=== PATIENT | male | born 1940 | race Caucasian/White ===

== ENCOUNTER 2021-06-20 07:05 | Emergency (ER) | payer MEDICARE, BC ==
[2021-06-20] MEDS ORDERED: fentaNYL 100 MCG/2 ML SDV IVPUSH ONE (07:35)
--- NOTE | 2021-06-20 07:44 | EDM.PDOC ---
<Juan Salazar - Last Filed: 06/20/21 07:36> ED HPI GENERAL MEDICAL PROBLEM - General Chief Complaint: General Stated Complaint: FELL WHILE WALKING THE THE DOG Time Seen by Provider: 06/20/21 07:30 Source of Information: Reports: Patient, EMS History Limitations: Reports: No Limitations - History of Present Illness INITIAL COMMENTS - FREE TEXT/NARRATIVE: 80-year-old male at about 4 AM tripped over a dog striking his right lateral chest on the edge of a chair. He has had intense pain since that time, with spasms, pain with breathing and unable to move. He is not short of breath despite the pleuritic pain when breathing. Denies abdominal pain or extremity pain. Pain is fairly localized to the right lateral chest. Fentanyl was given for EMS in route which did help initially but it is wearing off. Onset: Sudden Duration: Hour(s): (3 hours ago) Location: Reports: Chest (Right lateral chest) Worsens with: Reports: Breathing, Movement Associated Symptoms: Reports: Chest Pain (Right lateral chest wall pain), Other (Significant pleuritic pain). Denies: Cough, Nausea/Vomiting, Shortness of Breath Other Treatments PILER: Fenntanyl and zofran Right Chest Pain Score (Numeric/FACES): 3 - Related Data Allergies Allergy/AdvReac Type Severity Reaction Status Date / Time xray dye Allergy Seizure Uncoded 06/20/21 07:17 Home Meds: Home Meds Cetirizine [ZyrTEC] 10 mg PO DAILY 03/06/14 [History] Multivitamin [Multi-Vitamin Daily] 1 each PO DAILY 03/06/14 [History] RABEprazole [Aciphex] 20 mg PO DAILY 03/06/14 [History] Naphazoline [AK-Con 0.1% Ophth Soln] 1 drop EYEBOTH DAILY 05/11/19 [History] Lidocaine 5% [Lidoderm 5%] 1 patch TOP DAILY #10 patch 06/20/21 [Rx] atorvaSTATin [Lipitor] 10 mg PO BEDTIME 06/20/21 [History] lisinopriL [Lisinopril] 20 mg PO BEDTIME 06/20/21 [History] Past Medical History HEENT History: Reports: Impaired Vision Cardiovascular History: Reports: High Cholesterol, Hypertension, Pacemaker Respiratory History: Reports: Asthma Gastrointestinal History: Reports: GERD Genitourinary History: Reports: BPH Musculoskeletal History: Reports: Fracture Neurological History: Reports: None Psychiatric History: Reports: None Endocrine/Metabolic History: Reports: None Hematologic History: Reports: None Immunologic History: Reports: None Oncologic (Cancer) History: Reports: Basal Cell Carcinoma Dermatologic History: Reports: None - Infectious Disease History Infectious Disease History: Reports: Chicken Pox, Influenza, Mumps, Pertussis (Whooping Cough) - Past Surgical History HEENT Surgical History: Reports: None Cardiovascular Surgical History: Reports: Pacer GI Surgical History: Reports: Colonoscopy Male Surgical History: Reports: Prostatectomy, TURBT-Transurethral Resection of Bladder Tumor Musculoskeletal Surgical History: Reports: Arthroscopic Knee Social & Family History - Caffeine Use Caffeine Use: Reports: Coffee, Tea - Recreational Drug Use Recreational Drug Use: No ED ROS GENERAL - Review of Systems Review Of Systems: See Below Constitutional: Denies: Fever, Chills HEENT: Reports: No Symptoms Respiratory: Reports: Pleuritic Chest Pain. Denies: Shortness of Breath Cardiovascular: Denies: Palpitations GI/Abdominal: Reports: Nausea (The initial fentanyl given by EMS did cause some nausea). Denies: Abdominal Pain, Vomiting : Reports: No Symptoms Skin: Denies: Bruising Neurological: Denies: Headache ED EXAM, GENERAL - Physical Exam Exam: See Below Exam Limited By: No Limitations General Appearance: Alert, Mild Distress (Fairly uncomfortable) Eye Exam: Bilateral Eye: Normal Inspection Head: Atraumatic Neck: Supple, Non-Tender Respiratory/Chest: Lungs Clear, Other (Extremely tender to palpation on the right lateral chest wall, causes increased spasm and pain) Cardiovascular: Regular Rate, Rhythm, Bradycardia GI/Abdominal: Soft, Tender (Some increased tenderness and pain with palpation of the extreme right upper quadrant but no rebound tenderness) Extremities: Normal Inspection. No: Pedal Edema, Limited Range of Motion Neurological: Alert, Oriented Psychiatric: Anxious Skin Exam: Warm, Dry, Other (I see no bruising over the injured area.) Course - Re-Assessments/Exams Free Text/Narrative Re-Assessment/Exam: 06/20/21 07:44 Patient remained stable but uncomfortable. 50 mcg of fentanyl was given IV and a CT of the chest ordered without contrast. He is allergic to contrast dye. 06/20/21 07:44 Dr. Agnostopoulus took over care at 7:45 AM. Departure - Departure Disposition: Home, Self-Care 01 Clinical Impression: Rib fracture Qualifiers: Encounter type: initial encounter Rib fracture type: single rib Fracture type: closed Laterality: right Qualified Code(s): S22.31XA - Fracture of one rib, right side, initial encounter for closed fracture - Discharge Information Instructions: Rib Fracture Referrals: PCP,None [Primary Care Provider] - Forms: ED Department Discharge Care Plan Goals: I have prescribed Lidoderm 5% patches for you, however, most insurances will not pay for this so as a replacement if they do not cover it I would recommend picking up Salonpas 4% lidocaine patch which she would apply and replaced daily. <Chucho Wagner - Last Filed: 06/20/21 09:25> Course - Vital Signs Last Recorded V/S: Last Vital Signs Temp 36.6 C 06/20/21 07:16 Pulse 64 06/20/21 08:37 Resp 18 06/20/21 07:16 BP 114/45 L 06/20/21 08:37 Pulse Ox 94 L 06/20/21 08:37 - Orders/Labs/Meds Meds: Medications Discontinued Medications Generic Name Dose Route Start Last Admin Trade Name Freq PRN Reason Stop Dose Admin Fentanyl 50 mcg 06/20/21 07:35 06/20/21 07:42 Fentanyl 100 Mcg/2 Ml Sdv IVPUSH 06/20/21 07:36 50 mcg ONETIME ONE Administration Lidocaine 700 mg 06/20/21 08:46 06/20/21 08:52 Lidocaine 5% 700 Mg Patch TRDERM 06/20/21 08:47 700 mg ONETIME ONE Administration - Radiology Interpretation Free Text/Narrative:: The images of the CT of the chest without contrast as well as the report. The report is as follows: Findings: Heart size upper limits of normal. Normal caliber thoracic aorta and central pulmonary arteries. Left chest pacemaker with leads in the right atrium and right ventricle. No pericardial effusion. No thoracic lymphadenopathy. Bibasilar atelectasis. No focal consolidation, pleural effusion, or pneumothorax. No pulmonary nodules identified. No central endobronchial lesion or bronchial wall thickening. The imaged thyroid gland is normal in appearance. Elevation of the right hemidiaphragm. Partially visualized right renal cyst. The visualized upper abdomen is otherwise unremarkable. Mild degenerative changes of the spine. Acute nondisplaced fracture of the right posterolateral 9th rib. Impression: 1. Acute nondisplaced fracture of the right posterolateral 9th rib. 2. No other acute findings in the chest. Please note that all CT scans at this facility use dose modulation, iterative reconstruction, and/or weight-based dosing when appropriate to reduce radiation dose to as low as reasonably achievable. Dictated by Kaylie Recinos MD @ 06/20/2021 8:47:25 AM - Re-Assessments/Exams Free Text/Narrative Re-Assessment/Exam: 06/20/21 09:[address] of the chest without contrast (both the images and the report). The patient has a nondisplaced rib fracture of the ninth rib on the right posterior lateral chest. We will treat this with transdermal lidocaine (Salonpas) 4% patch applied to the area daily. I did explain to the patient that this will take 4 to 6 weeks to heal. He may experience pain for the next 1 to 2 weeks until the callus forms. In addition to the Lidoderm patch, he may also use Tylenol for pain relief. At this time, the patient is suitable for discharge. Indications return to the ED were discussed. Departure - Departure Time of Disposition: 09:21 Sepsis Event Note (ED) - Focused Exam Vital Signs: Vital Signs Temp Pulse Resp BP Pulse Ox 06/20/21 08:37 64 114/45 L 94 L 06/20/21 07:39 55 L 141/64 H 93 L 06/20/21 07:16 36.6 C 57 L 18 126/68 92 L 06/20/21 07:13 36.6 C 57 L 18 126/68 92 L - Problem List & Annotations (1) Rib fracture SNOMED Code(s): 39562821 Code(s): S22.39XA - FRACTURE OF ONE RIB, UNSP SIDE, INIT FOR CLOS FX Status: Acute Priority: Medium Current Visit: Yes Qualifiers: Encounter type: initial encounter Rib fracture type: single rib Fracture type: closed Laterality: right Qualified Code(s): S22.31XA - Fracture of one rib, right side, initial encounter for closed fracture - Problem List Review Problem List Initiated/Reviewed/Updated: Yes
[2021-06-20] MEDS ORDERED: Lidocaine 5% 700 MG Patch TRDERM ONE (08:46)
--- NOTE | 2021-06-20 08:49 | CRLCT ---
For Patients: As a result of the Century Cures Act, medical imaging exams and procedure reports are released immediately into your electronic medical record. You may view this report before your referring provider. If you have questions, please contact your health care provider. Indication: Fall, trauma to right side of the ribs, fell and hit a chair. Technique: CT of the chest without IV contrast. Coronal and sagittal reconstructions. Comparison: None. Findings: Heart size upper limits of normal. Normal caliber thoracic aorta and central pulmonary arteries. Left chest pacemaker with leads in the right atrium and right ventricle. No pericardial effusion. No thoracic lymphadenopathy. Bibasilar atelectasis. No focal consolidation, pleural effusion, or pneumothorax. No pulmonary nodules identified. No central endobronchial lesion or bronchial wall thickening. The imaged thyroid gland is normal in appearance. Elevation of the right hemidiaphragm. Partially visualized right renal cyst. The visualized upper abdomen is otherwise unremarkable. Mild degenerative changes of the spine. Acute nondisplaced fracture of the right posterolateral 9th rib. Impression: 1. Acute nondisplaced fracture of the right posterolateral 9th rib. 2. No other acute findings in the chest. Please note that all CT scans at this facility use dose modulation, iterative reconstruction, and/or weight-based dosing when appropriate to reduce radiation dose to as low as reasonably achievable. Dictated by Kaylie Recinos MD @ 06/20/2021 8:47:25 AM (Electronically Signed)
== END 2021-06-20 10:52 | disposition home or self-care (01) ==
LOC: JP.ED 07:05
DX: S22.31XA Fracture of one rib, right side, initial encounter for closed fracture (principal); E78.00 Pure hypercholesterolemia, unspecified; I10 Essential (primary) hypertension; Z95.0 Presence of cardiac pacemaker; Z79.899 Other long term (current) drug therapy; Z91.041 Radiographic dye allergy status; W22.09XA Striking against other stationary object, initial encounter
CPT/HCPCS: 71250; 96374; 99284; A9270; J3010

== ENCOUNTER 2025-07-21 07:41 | Day surgery (SDC) | payer MEDICARE, BC ==
[2025-07-21] MEDS ORDERED: fentaNYL 50 MCG/ML SDV ONE (08:00)
[2025-07-21] MEDS ORDERED: Propofol 200 MG/20 ML SDV ONE (08:00)
[2025-07-21] MEDS: Lactated Ringers 1,000 ML IV SCH (08:20)
== END 2025-07-21 11:28 | disposition home or self-care (01) ==
LOC: JP.SDS 07:41
PROVIDERS: ATTEND Surgery
DX: D12.5 Benign neoplasm of sigmoid colon (principal); D12.8 Benign neoplasm of rectum; K57.30 Diverticulosis of large intestine without perforation or abscess without bleeding; E78.00 Pure hypercholesterolemia, unspecified; K21.9 Gastro-esophageal reflux disease without esophagitis; I10 Essential (primary) hypertension; Z91.041 Radiographic dye allergy status; Z79.899 Other long term (current) drug therapy
CPT/HCPCS: 00813; 43235; 45380; 45385; J2704; J3010; J7120

== ENCOUNTER 2025-09-02 12:11 | Emergency (ER) | payer MEDICARE, BC ==
[2025-09-02 13:04] LABS: BASOPHILS ABSOLUTE AUTO 0.03 K/uL (0.00-0.10); BASOPHILS PERCENT AUTO 0.4 % (0.1-1.3); EOSINOPHILS ABSOLUTE AUTO 0.11 K/uL (0.00-0.40); EOSINOPHILS PERCENT AUTO 1.5 % (0.0-5.4); IMMATURE GRAN PERCENT AUTO 0.3 % (0.0-0.7); LYMPHOCYTES ABSOLUTE AUTO 1.19 K/uL (0.8-3.3); LYMPHOCYTES PERCENT AUTO 16.1 % (11.4-47.7); MONOCYTES ABSOLUTE AUTO 0.64 K/uL (0.20-0.90); MONOCYTES PERCENT AUTO 8.7 % (3.3-12.6); NEUTROPHILS ABSOLUTE AUTO 5.40 K/uL (1.0-7.6); NEUTROPHILS PERCENT AUTO 73.0 % (40.0-78.1); PLATELET COUNT,PLT 234 K/uL (130-375); RED BLOOD CELL COUNT 3.99 M/uL (4.14-5.76); WHITE BLOOD CELL COUNT,WBC 7.4 K/uL (3.2-11.0)
[2025-09-02 13:07] LABS: IMMATURE GRAN ABSOLUTE AUTO 0.02 K/uL (0.00-0.23)
[2025-09-02 13:31] LABS: A/G RATIO 1.2 (1.2-2.2); ALANINE AMINOTRANSFERASE,ALT 18 U/L (12-78); ASPARTATE AMNIOTRANSFERASE,AST 10 U/L (15-37); BILIRUBIN TOTAL 0.5 mg/dL (0.2-1.0); BLOOD UREA NITROGEN,BUN 19 mg/dL (7-18); CARBON DIOXIDE,CO2 27 mmol/L (21-32); CHLORIDE,CL 104 mmol/L (100-108); CREATININE 0.8 mg/dL (0.8-1.3); ESTIMATED GFR 88 mL/min (>60); GLUCOSE RANDOM 101 mg/dL (74-106); POTASSIUM,K 4.3 mmol/L (3.6-5.2); PROTEIN TOTAL,TP 6.2 g/dL (6.4-8.2); SODIUM,NA 139 mmol/L (140-148)
== END 2025-09-02 16:23 | disposition home or self-care (01) ==
LOC: JP.ED 12:11
DX: R19.5 Other fecal abnormalities (principal); D64.9 Anemia, unspecified; I10 Essential (primary) hypertension; K21.9 Gastro-esophageal reflux disease without esophagitis; E78.00 Pure hypercholesterolemia, unspecified; Z91.041 Radiographic dye allergy status; Z79.899 Other long term (current) drug therapy
CPT/HCPCS: 36415; 74176; 74176-26; 80053; 82272; 85025; 99283; 99284